=== PATIENT | male | born 1975 | race Hispanic/Latino ===

== ENCOUNTER 2022-09-19 21:03 | Emergency (ER) | payer SELFPAY ==
[2022-09-19 22:06] LABS: Hemoglobin 17.2 g/dL (14.0-18.0)
[2022-09-19] MEDS ORDERED: Azithromycin 250 MG TAB ONE (22:41)
== END 2022-09-19 22:45 | disposition home or self-care (01) ==
LOC: MADERS 21:03
DX: R04.2 Hemoptysis (principal); J06.9 Acute upper respiratory infection, unspecified; F17.210 Nicotine dependence, cigarettes, uncomplicated
CPT/HCPCS: 36415; 71045; 85014; 85018